=== PATIENT | female | born 2000 | race Caucasian/White ===

== ENCOUNTER 2019-01-24 23:39 | Emergency (ER) | payer BC ==
[~2019-01-24] VITALS: Ht 157.5 cm; Wt 50.0 kg
[2019-01-24 23:48] VITALS: TEMP 99
[2019-01-25] MEDS ORDERED: BIRTH CONTROL (01:28)
[2019-01-25] MEDS ORDERED: NORCO 325 MG-51 TAB PO (03:00)
[2019-01-25] MEDS ORDERED: CRUTCHES MC (03:00)
[2019-01-25 03:15] VITALS: BP 117/76; PULSE 98
== END 2019-01-25 03:17 | disposition home or self-care (01) ==
LOC: COL.ER 23:39
DX: S82.401A Unspecified fracture of shaft of right fibula, initial encounter for closed fracture (principal); S93.402A Sprain of unspecified ligament of left ankle, initial encounter; W19.XXXA Unspecified fall, initial encounter; X50.1XXA Overexertion from prolonged static or awkward postures, initial encounter; Y92.009 Unspecified place in unspecified non-institutional (private) residence as the place of occurrence of the external cause